=== PATIENT | female | born 1985 | race Caucasian/White ===

== ENCOUNTER 2017-04-14 10:02 | Emergency (ER) | payer MEDICAID ==
[2017-04-14 10:14] VITALS: RESP 16
--- NOTE | 2017-04-14 11:16 | EDPHY ---
H & P Smoking Status: Heavy smoker Time Seen by Provider: 04/14/17 10:57 HPI/ROS: CHIEF COMPLAINT: Right lower quadrant pain HISTORY OF PRESENT ILLNESS: This is a 31-year-old female presenting to the emergency department complaining of right lower quadrant pain with cramping onset at 0100. Patient states she took a home test on Friday which was positive, patient states she did not know she was , last known menstrual period November 2016. Denies any vaginal bleeding, no nausea vomiting REVIEW OF SYSTEMS: Constitutional: No fever, no chills. Eyes: No discharge. ENT: No sore throat. Cardiovascular: No chest pain, no palpitations. Respiratory: No cough, no shortness of breath. Gastrointestinal: Right lower quadrant pain, no vomiting. Genitourinary: No hematuria. Musculoskeletal: No back pain. Skin: No rashes. Neurological: No headache. (Nadia Barber) Physical Exam: General Appearance: Alert, no distress. Eyes: Pupils equal and round no pallor or injection. ENT, Mouth: Mucous membranes moist. Respiratory: There are no retractions, lungs are clear to auscultation. Cardiovascular: Regular rate and rhythm. Gastrointestinal: Abdomen is soft nondistended, right lower quadrant tenderness on palpation no rebound tenderness, no masses, bowel sounds normal. Neurological: No focal deficits Skin: Warm and dry, no rashes. Musculoskeletal: Neck is supple nontender. Extremities: symmetrical, full range of motion. Psychiatric: Patient is oriented X 3, acting appropriate (Nadia Barber) Constitutional: Initial Vital Signs Temperature (C) 36.4 C 04/14/17 10:12 Heart Rate 90 04/14/17 10:12 Respiratory Rate 16 04/14/17 10:12 Blood Pressure 132/57 H 04/14/17 10:12 O2 Sat (%) 98 04/14/17 10:12 O2 Delivery Mode Room Air Allergies/Adverse Reactions: penicillin G Allergy (Verified 09/30/16 23:39) Home Medications: Medication Instructions Recorded Albuterol [Proventil Inhaler HFA 2 puffs IH QID #1 mdi 08/19/16 (*)] Benzonatate 200 mg PO TID PRN #28 capsule 08/19/16 LORazepam [Ativan] 1 mg PO Q8 PRN #10 tablet 08/19/16 Medical Decision Making - Diagnostics Imaging Results: Imaging Impressions Pelvic/Renal Ultrasound 04/14/17 11:16 Impression: 1. Size inconsistent with dates. 2. Viable intrauterine gestation at 12 weeks 3 days with HUGH 10/24/2017. No evidence for ectopic or free fluid. Results called to Dr. Maldonado at 12:53 PM. Abdomen Ultrasound 04/14/17 11:37 Impression: No evidence for appendicitis. Results called to Dr. Damian Maldonado. ED Course/Re-evaluation: Discussed ED plan of care with patient: CBC, BMP, hcg quant, UA, pelvic ultrasound was ordered to rule out ectopic ovarian cyst and appendicitis Ultrasound shows of 12 weeks 3 days, , no ovarian cyst normal appendicitis 1320: The discharge home---> stable, discussed all discharge instructions with patient. Once again is very important that you do not take any other medications unless they are prescribed by a medical doctor and safe for . No ibuprofen no aspirin or Aleve, you can only take Tylenol as needed patient did verbalizes understanding (Nadia Barber) Differential Diagnosis: Other differential diagnosis considered but not limited to ectopic , ovarian cyst, and appendicitis (Nadia Barber) Other Provider: 12 wks 3 day IUP, nl hr, normal appendix; Oppenhemier at 1254. (Damian Maldonado) - Data Points Laboratory Results: Laboratory Results 04/14/17 11:22 04/14/17 11:22 04/14/17 04/14/17 11:22 11:22 WBC 7.78 10^3/uL 10^3/uL (3.80-9.50) RBC 4.20 10^6/uL 10^6/uL (4.18-5.33) Hgb 14.7 g/dL g/dL (12.6-16.3) Hct 41.1 % % (38.0-47.0) MCV 97.9 fL fL (81.5-99.8) MCH 35.0 pg H pg (27.9-34.1) MCHC 35.8 g/dL g/dL (32.4-36.7) RDW 11.7 % % (11.5-15.2) Plt Count 187 10^3/uL 10^3/uL (150-400) MPV 10.6 fL fL (8.7-11.7) Neut % (Auto) 66.5 % % (39.3-74.2) Lymph % (Auto) 23.5 % % (15.0-45.0) Harney % (Auto) 7.6 % % (4.5-13.0) Eos % (Auto) 0.9 % % (0.6-7.6) Baso % (Auto) 1.0 % % (0.3-1.7) Nucleat RBC Rel Count 0.0 % % (0.0-0.2) Absolute Neuts (auto) 5.17 10^3/uL 10^3/uL (1.70-6.50) Absolute Lymphs (auto) 1.83 10^3/uL 10^3/uL (1.00-3.00) Absolute Monos (auto) 0.59 10^3/uL 10^3/uL (0.30-0.80) Absolute Eos (auto) 0.07 10^3/uL 10^3/uL (0.03-0.40) Absolute Basos (auto) 0.08 10^3/uL 10^3/uL (0.02-0.10) Absolute Nucleated RBC 0.00 10^3/uL 10^3/uL (0-0.01) Immature Gran % 0.5 % % (0.0-1.1) Immature Gran # 0.04 10^3/uL 10^3/uL (0.00-0.10) Sodium 138 mEq/L mEq/L (134-144) Potassium 3.9 mEq/L mEq/L (3.5-5.2) Chloride 107 mEq/L mEq/L (97-110) Carbon Dioxide 20 mEq/l L mEq/l (22-31) Anion Gap 11 mEq/L mEq/L (8-16) BUN 8 mg/dL mg/dL (7-23) Creatinine 0.5 mg/dL L mg/dL (0.6-1.0) Estimated GFR > 60 Glucose 73 mg/dL mg/dL (70-100) Calcium 9.4 mg/dL mg/dL (8.5-10.4) Beta HCG, Quant 35248.00 mIU/mL H mIU/mL (0-4.83) Departure - Departure Disposition: Home, Routine, Self-Care Clinical Impression: Intrauterine Condition: Good Instructions: (ED) Additional Instructions: 1. The ultrasound today showed a intrauterine at 12 weeks and 3 days 2. [facility] as you can with OBGYN 3. It is very important that you do not take any medications other than Tylenol as needed. Do not take any aspirin or ibuprofen or Aleve this can affect your and fetus. Before taking any medications follow up with a doctor to make sure the medication is safe for 4. Increase fluid intake, and rest Referrals: NONE *PRIMARY CARE P,. [Primary Care Provider] - As per Instructions [facility],. [Clinic] - As per Instructions
[2017-04-14 11:55] LABS: % IMMATURE GRANULYOCYTES 0.5 % (0.0-1.1); ABSOLUTE IMMATURE GRANULOCYTES 0.04 10^3/uL (0.00-0.10); ADD DIFF? NO; ADD MORPH? NO; ADD SCAN? NO; ATYPICAL LYMPHOCYTE FLAG 10 (0-99); FRAGMENT RBC FLAG 0 (0-99); HEMATOCRIT 41.1 % (38.0-47.0); HEMOGLOBIN 14.7 g/dL (12.6-16.3); LEFT SHIFT FLG 0 (0-99); LIPEMIA HEMOLYSIS FLAG 90 (0-99); MEAN CELL HEMOGLOBIN CONCENTR. 35.8 g/dL (32.4-36.7); MEAN CELL VOLUME 97.9 fL (81.5-99.8); MEAN PLATELET VOLUME 10.6 fL (8.7-11.7); PLATELET CLUMPS FLAG 10 (0-99); PLATELET COUNT 187 10^3/uL (150-400); RED CELL DISTRIBUTION WIDTH 11.7 % (11.5-15.2)
[2017-04-14 12:04] LABS: ANION GAP 11 mEq/L (8-16); CALCIUM 9.4 mg/dL (8.5-10.4); CARBON DIOXIDE 20 mEq/l (22-31); CHLORIDE 107 mEq/L (97-110); CREATININE 0.5 mg/dL (0.6-1.0); GLOMERULAR FILTRATION RATE > 60; GLUCOSE 73 mg/dL (70-100); POTASSIUM 3.9 mEq/L (3.5-5.2); SODIUM 138 mEq/L (134-144)
[2017-04-14 13:31] LABS: COLOR YELLOW; LEUKOCYTE ESTERASE,URINE TRACE (NEGATIVE); NITRITE,URINE NEGATIVE (NEGATIVE)
[2017-04-14 13:36] VITALS: BP 125/64; PULSE 82; TEMP 97.9; O2SAT 96
[2017-04-14 13:40] LABS: BACTERIA TRACE /hpf (NONE SEEN); RBC,URINE NONE SEEN /hpf (0-3)
== END 2017-04-14 13:36 | disposition home or self-care (01) ==
DX: O26.891 Other specified pregnancy related conditions, first trimester (principal); R10.31 Right lower quadrant pain; F17.200 Nicotine dependence, unspecified, uncomplicated; Z3A.12 12 weeks gestation of pregnancy

== ENCOUNTER → 2017-05-26 | Outpatient (CLI) | payer MEDICAID | LOC: FIMAGING 16:26 | PROVIDERS: ATTEND Family Medicine | DX: Z34.02 Encounter for supervision of normal first pregnancy, second trimester (principal); Z3A.18 18 weeks gestation of pregnancy ==

== ENCOUNTER 2019-05-01 07:26 | Emergency (ER) | payer MEDICAID | END 2019-05-01 08:21 | disposition home or self-care (01) ==

== ENCOUNTER 2019-05-02 00:07 | Emergency (ER) | payer MEDICAID | END 2019-05-02 03:03 | disposition home or self-care (01) ==